=== PATIENT | female | born 1955 | race African-American/Black ===

== ENCOUNTER 2019-05-20 07:43 | Day surgery (SDC) | payer BC ==
[~2019-05-20] VITALS: Ht 177.8 cm; Wt 93.0 kg
[~2019-05-20 07:43] MED LIST: LACTATED RINGERS 1,000 ML IV SCH
[2019-05-20] MEDS ORDERED: POTASSIUM IODIDE/IODINE 20ML TOP SCH (09:30)
[2019-05-20] MEDS ORDERED: FERRIC SUBSULFATE SOLN 8GM TOP SCH (09:30)
[2019-05-20] MEDS ORDERED: FEXO-25 PO (09:59)
[2019-05-20] MEDS ORDERED: MONT10TA21 PO (09:59)
[2019-05-20] MEDS ORDERED: LOPHC2 PO (09:59)
[2019-05-20] MEDS ORDERED: FENTANYL CITRATE/PF 50MCG/ML 2ML VIAL ONE (11:14)
[2019-05-20] MEDS ORDERED: MIDAZOLAM HCL 2 MG/2 ML VIAL ONE (11:15)
[2019-05-20] MEDS ORDERED: PROPOFOL 200MG/20ML VIAL IV ONE (11:15)
[2019-05-20] MEDS ORDERED: LIDOCAINE HCL/PF 1% 10 MG/ML 5ML VIAL ONE (11:15)
[2019-05-20] MEDS ORDERED: ROCURONIUM BROMIDE 10MG/ML VIAL 5ML IV ONE (11:17)
[2019-05-20] MEDS ORDERED: DEXAMETHASONE 4MG/ML 1ML VIAL ONE (11:35)
[2019-05-20] MEDS ORDERED: METOCLOPRAMIDE HCL 10MG/2ML VIAL ONE (11:36)
[2019-05-20] MEDS ORDERED: ONDANSETRON HCL 4MG/2ML INJ ONE (11:36)
[2019-05-20] MEDS ORDERED: FLUMAZENIL 0.1 MG/ML 5ML VIAL IV ONE (12:01)
[2019-05-20] MEDS ORDERED: MORPHINE SULFATE 2 MG/ML CPJ (NOT FOR IM USE) IV PRN (14:00)
[2019-05-20] MEDS ORDERED: HYDROCODONE/ACETAMINOPHEN 5/325MG TABLET PO PRN ×2 (14:00)
[2019-05-20] MEDS ORDERED: MORPHINE SULFATE 4 MG/ML CPJ (NOT FOR IM USE) IV PRN (14:00)
[2019-05-20] MEDS ORDERED: ONDANSETRON HCL 4MG/2ML INJ IV PRN (14:00)
== END 2019-05-20 13:30 | disposition home or self-care (01) ==
LOC: OR 07:43
PROVIDERS: ATTEND Obstetrics & Gynecology
DX: D06.9 Carcinoma in situ of cervix, unspecified (principal); D72.829 Elevated white blood cell count, unspecified; E87.2 Acidosis; F32.9 Major depressive disorder, single episode, unspecified; I48.91 Unspecified atrial fibrillation; I11.9 Hypertensive heart disease without heart failure; Z85.3 Personal history of malignant neoplasm of breast; Z79.899 Other long term (current) drug therapy; Z98.890 Other specified postprocedural states
CPT/HCPCS: 57522; 88305; 88307; J1100; J2250; J2405; J2704; J2765; J3010; J3490